=== PATIENT | female | born 1945 | race Caucasian/White ===

== ENCOUNTER 2018-04-24 11:35 | Emergency (ER) | payer MEDICARE, BC ==
[2018-04-24] MEDS ORDERED: Albuterol/Ipratropium 3.0-0.5 MG/3 ML Neb Soln ONE ×2 (11:57→12:39)
[2018-04-24] MEDS ORDERED: Albuterol/Ipratropium 3.0-0.5 MG/3 ML Neb Soln NEB ONE ×2 (12:49)
[2018-04-24] MEDS ORDERED: Potassium Chloride 20 MEQ Tab.ER PO ONE (14:01)
[2018-04-24] MEDS ORDERED: Potassium Chloride 10% 20 MEQ/15 ML Soln 15 ML UD Cup PO ONE (14:21)
[2018-04-24 22:12] VITALS: BP 132/50
--- NOTE | 2018-04-24 22:26 | EDM.PDOC ---
ED HPI GENERAL MEDICAL PROBLEM - General Chief Complaint: Respiratory Problem Stated Complaint: SOB FAINTING Time Seen by Provider: 04/24/18 11:50 Source of Information: Reports: Patient History Limitations: Reports: No Limitations - History of Present Illness INITIAL COMMENTS - FREE TEXT/NARRATIVE: This pleasant markedly obese 200 pound woman. Markedly short of breath and was immediately started on DuoNeb on arrival to the ED. On 04/21/18 noted which is known for a long time that she had even more increased mucous membrane production from her lungs and is a passages. And this new chorea coupled with and cough and fever markedly increased her shortness of breath. On awakening 04/22 she had sudden onset of sweating oriented when she awoke short of breath as stated with dyspnea on exertion. She does not have O2 at home. She is up-to- date on her flu immunization. She knows that Januvia increases mucus discharge in her respiratory passages. He attributes this to her increased shortness of breath and possible pneumonia. 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 She's had many Botox shots in her upper eyelids after the surgeries been completed and no longer for eyelids droop in front of her eyes. ld - Related Data Allergies Allergy/AdvReac Type Severity Reaction Status Date / Time iodine Allergy Airway Verified 12/19/13 17:52 Tightness lisinopril Allergy Hives Verified 12/19/13 17:52 metformin Allergy Stomach Verified 12/19/13 17:52 Upset shellfish derived Allergy Abdominal Verified 10/17/15 10:45 Pain Home Meds: Home Meds Aspirin [Adult Low Dose Aspirin EC] 81 mg PO DAILY 12/19/13 [History] Carboxymethylcellulose Sodium [Refresh Plus 0.5% Ophth Soln] 1 drop EYEBOTH ASDIRECTED PRN 12/19/13 [History] Hydrochlorothiazide 25 mg PO DAILY 12/19/13 [History] Metoprolol Succinate [Toprol XL] 100 mg PO BID 12/19/13 [History] Ranitidine [Zantac] 150 mg PO DAILY 12/19/13 [History] Simvastatin 40 mg PO BEDTIME 12/19/13 [History] SitaGLIPtin [Januvia] 50 mg PO DAILY 12/19/13 [History] Albuterol [Ventolin HFA] 2 puff IH Q4H PRN 10/17/15 [History] Glimepiride [Amaryl] 2 mg PO WITHBREAKFAST 10/17/15 [History] Biotin 1,000 mcg PO BEDTIME 04/24/18 [History] Cholecalciferol (Vitamin D3) [Vitamin D3] 1,000 units PO BEDTIME 04/24/18 [ History] Naproxen 500 mg PO BID PRN 04/24/18 [History] Potassium Chloride [Klor-Con] 20 meq PO BID #40 packet 04/24/18 [Rx] Past Medical History HEENT History: Reports: Cataract, Impaired Vision Cardiovascular History: Reports: High Cholesterol, Hypertension Respiratory History: Reports: COPD, Pneumonia, Recurrent Gastrointestinal History: Reports: Cholelithiasis Genitourinary History: Reports: None DUTY ENGINEER History: Reports: Musculoskeletal History: Reports: Osteoporosis, Other (See Below) Other Musculoskeletal History: torn achilles tendon Neurological History: Reports: Migraines Psychiatric History: Reports: Depression Endocrine/Metabolic History: Reports: Diabetes, Type II, Obesity/BMI 30+ Hematologic History: Reports: None Immunologic History: Reports: None Oncologic (Cancer) History: Reports: None Dermatologic History: Reports: None Other Dermatologic History: BASAL CELL CA OF FACE - Infectious Disease History Infectious Disease History: Reports: Chicken Pox, Measles, Pertussis (Whooping Cough) - Past Surgical History HEENT Surgical History: Reports: Other (See Below) ED ROS GENERAL - Review of Systems Review Of Systems: See Below Constitutional: Reports: Other (Weight this limits her to move around he has moderate pedal edema) HEENT: Reports: No Symptoms Respiratory: Reports: Shortness of Breath, Cough (Exertion), Sputum, Other Cardiovascular: Reports: Other (No chest pain no tachycardia or arrhythmia) Endocrine: Reports: No Symptoms GI/Abdominal: Reports: No Symptoms : Reports: No Symptoms Musculoskeletal: Reports: No Symptoms Skin: Reports: No Symptoms Neurological: Reports: No Symptoms Psychiatric: Reports: No Symptoms Hematologic/Lymphatic: Reports: No Symptoms Immunologic: Reports: No Symptoms ED EXAM, GENERAL - Physical Exam Exam: See Below Free Text/Narrative:: Patient on arrival was very dyspneic and on O2. It had gotten much better and wrote with a DuoNeb. He is a very pleasant woman who now feels much better. Denies chest pain. Exam Limited By: No Limitations General Appearance: Alert, WD/WN, Moderate Distress, Other (Final distress on arrival has resolved to minimal distress after the DuoNeb) Eye Exam: Bilateral Eye: Other (Peripheral surgical reduction of the lid over having a redundant problem soft tissue and dermis.) Ears: Normal External Exam, Normal Canal, Hearing Grossly Normal, Normal TMs Ear Exam: Bilateral Ear: Auricle Normal, Canal Normal, TM normal Nose: Normal Inspection, Normal Mucosa, No Blood Throat/Mouth: Normal Inspection, Normal Lips, Normal Gums, Normal Oropharynx, Normal Voice Head: Atraumatic, Normocephalic Neck: Normal Inspection, Supple, Non-Tender, Other (No tracheal tug) Respiratory/Chest: Other (Mild respiratory distress on arrival which quickly abated after the DuoNeb) Cardiovascular: Normal Peripheral Pulses, Regular Rate, Rhythm, No Edema, No Gallop, No Murmur, No Rub Peripheral Pulses: 1+: Radial (L), Radial (R) GI/Abdominal: Normal Bowel Sounds, Soft, Non-Tender, No Organomegaly, No Distention, No Abnormal Bruit, No Mass (Female) Exam: Deferred Rectal (Female) Exam: Deferred Back Exam: Normal Inspection Extremities: Normal Inspection Neurological: Alert, Oriented, CN II-XII Intact, Normal Cognition, Normal Gait, No Motor/Sensory Deficits, Other (Absent reflexes) Psychiatric: Normal Affect, Normal Mood Skin Exam: Warm, Dry Lymphatic: Adenopathy Course - Vital Signs Last Recorded V/S: Last Vital Signs Temp 35.9 C 04/24/18 11:35 Pulse 60 04/24/18 14:30 Resp 20 04/24/18 14:30 BP 132/50 L 04/24/18 14:30 Pulse Ox 95 04/24/18 14:30 - Orders/Labs/Meds Orders: Active Orders 24 hr Category Date Time Status Oxygen Therapy Adult [Oxygen Therapy, ED] [RC] Care 04/24/18 12:57 Active ASDIRECTED RT Aerosol Therapy [RC] ASDIRECTED Care 04/24/18 12:49 Active Chest 1V Frontal [CR] Stat Exams 04/24/18 11:58 Taken CULTURE BLOOD [BC] Urgent Lab 04/24/18 12:40 Received CULTURE BLOOD [BC] Urgent Lab 04/24/18 12:50 Received CULTURE SPUTUM + SMEAR [RM] Stat Lab 04/24/18 14:26 Received Blood Culture x2 Reflex Set [OM.PC] Urgent Oth 04/24/18 12:24 Ordered EKG 12 Lead [EK] Routine Ther 04/24/18 12:21 Ordered Labs: Laboratory Tests 04/24/18 04/24/18 04/24/18 Range/Units 12:40 12:40 12:40 WBC 6.1 (4.5-12.0) X10-3/uL RBC 4.86 (3.23-5.20) x10(6)uL Hgb 14.5 (11.5-15.5) g/dL Hct 42.1 (30.0-51.3) % MCV 86.7 (80-96) fL MCH 29.9 (27.7-33.6) pg MCHC 34.5 (32.2-35.4) g/dL RDW 13.7 (11.5-15.5) % Plt Count 249 (125-369) X10(3)uL MPV 8.1 (7.4-10.4) fL Neut % (Auto) 76.3 (46-82) % Lymph % (Auto) 14.8 (13-37) % Gage % (Auto) 8.1 (4-12) % Eos % (Auto) 0 L (1.0-5.0) % Baso % (Auto) 1 (0-2) % Neut # (Auto) 4.7 (1.6-8.3) # Lymph # (Auto) 0.9 (0.6-5.0) # Gage # (Auto) 0.5 (0.0-1.3) # Eos # (Auto) 0.0 (0.0-0.8) # Baso # (Auto) 0.0 (0.0-0.2) # D-Dimer, Quantitative 0.56 (0.0-0.59) mg/LFEU Sodium 139 (135-145) mmol/L Potassium 2.8 L* (3.5-5.3) mmol/L Chloride 99 L (100-110) mmol/L Carbon Dioxide 33 H (21-32) mmol/L BUN 13 (7-18) mg/dL Creatinine 1.0 (0.55-1.02) mg/dL Est Cr Clr Drug Dosing TNP Estimated GFR (MDRD) 54 L (>60) BUN/Creatinine Ratio 13.0 (9-20) Glucose 118 H (80-116) mg/dL Lactic Acid (0.4-2.2) mmol/L Calcium 9.1 (8.6-10.2) mg/dL Total Bilirubin 0.7 (0.1-1.3) mg/dL AST 14 (5-25) IU/L ALT 19 (12-36) U/L Alkaline Phosphatase 70 (56-112) IU/L Troponin I (<0.017-0.056) ng/mL NT-Pro-B Natriuret Pep (<=125) pg/mL Total Protein 7.1 (6.0-8.0) g/dL Albumin 3.2 (3.2-4.6) g/dL Globulin 3.9 g/dL Albumin/Globulin Ratio 0.8 04/24/18 04/24/18 04/24/18 Range/Units 12:40 12:40 12:40 WBC (4.5-12.0) X10-3/uL RBC (3.23-5.20) x10(6)uL Hgb (11.5-15.5) g/dL Hct (30.0-51.3) % MCV (80-96) fL MCH (27.7-33.6) pg MCHC (32.2-35.4) g/dL RDW (11.5-15.5) % Plt Count (125-369) X10(3)uL MPV (7.4-10.4) fL Neut % (Auto) (46-82) % Lymph % (Auto) (13-37) % Gage % (Auto) (4-12) % Eos % (Auto) (1.0-5.0) % Baso % (Auto) (0-2) % Neut # (Auto) (1.6-8.3) # Lymph # (Auto) (0.6-5.0) # Gage # (Auto) (0.0-1.3) # Eos # (Auto) (0.0-0.8) # Baso # (Auto) (0.0-0.2) # D-Dimer, Quantitative (0.0-0.59) mg/LFEU Sodium (135-145) mmol/L Potassium (3.5-5.3) mmol/L Chloride (100-110) mmol/L Carbon Dioxide (21-32) mmol/L BUN (7-18) mg/dL Creatinine (0.55-1.02) mg/dL Est Cr Clr Drug Dosing Estimated GFR (MDRD) (>60) BUN/Creatinine Ratio (9-20) Glucose (80-116) mg/dL Lactic Acid 0.8 (0.4-2.2) mmol/L Calcium (8.6-10.2) mg/dL Total Bilirubin (0.1-1.3) mg/dL AST (5-25) IU/L ALT (12-36) U/L Alkaline Phosphatase (56-112) IU/L Troponin I < 0.017 L (<0.017-0.056) ng/mL NT-Pro-B Natriuret Pep 483 H (<=125) pg/mL Total Protein (6.0-8.0) g/dL Albumin (3.2-4.6) g/dL Globulin g/dL Albumin/Globulin Ratio Meds: Medications Discontinued Medications Generic Name Dose Route Start Last Admin Trade Name Freq PRN Reason Stop Dose Admin Albuterol/Ipratropium Confirm 04/24/18 11:57 04/24/18 12:00 Duoneb 3.0-0.5 Mg/3 Ml Administered 04/24/18 11:58 3 ml Dose Administration 3 ml .ROUTE .STK-MED ONE Albuterol/Ipratropium Confirm 04/24/18 12:39 04/24/18 12:43 Duoneb 3.0-0.5 Mg/3 Ml Administered 04/24/18 12:40 3 ml Dose Administration 3 ml .ROUTE .STK-MED ONE Albuterol/Ipratropium 3 ml 04/24/18 12:49 04/24/18 12:50 Duoneb 3.0-0.5 Mg/3 Ml NEB 04/24/18 12:50 Not Given ONETIME ONE Albuterol/Ipratropium 3 ml 04/24/18 12:49 04/24/18 12:50 Duoneb 3.0-0.5 Mg/3 Ml NEB 04/24/18 12:50 Not Given ONETIME ONE Potassium Chloride 40 meq 04/24/18 14:01 04/24/18 14:17 Klor-Con M20 PO 04/24/18 14:02 40 meq ONETIME ONE Administration Potassium Chloride 40 meq 04/24/18 14:21 04/24/18 22:06 Potassium Chloride Solution PO 04/24/18 14:22 Not Given ONETIME ONE Departure - Departure Time of Disposition: 13:45 (Patient's markedly obese, is mild COPD and had a dramatic improvement of her breathing after duo nebs which a good anticholinergic response to DuoNeb decreasing the broncospasm that she was acutely experiencing. ) Disposition: Home, Self-Care 01 Clinical Impression: Bronchospasm, acute, Obesity (BMI 30-39.9) COPD (chronic obstructive pulmonary disease) Qualifiers: COPD type: unspecified COPD Qualified Code(s): J44.9 - Chronic obstructive pulmonary disease, unspecified Diabetes Qualifiers: Diabetes mellitus type: type 2 Diabetes mellitus terminal operations supervisor insulin use: with terminal operations supervisor use Diabetes mellitus complication status: with kidney complications Diabetes mellitus complication detail: with microalbuminuria Qualified Code(s): E11.29 - Type 2 diabetes mellitus with other diabetic kidney complication; R80.9 - Proteinuria, unspecified; Z79.4 - custodial (current) use of insulin - Discharge Information Prescriptions: Potassium Chloride [Klor-Con] 20 meq PO BID #40 packet Instructions: Shortness of Breath, Adult, [id number], Hypokalemia Referrals: Mt Sexton MD [Primary Care Provider] - Forms: ED Department Discharge Additional Instructions: Discomfort made for you to have dual nebs as needed. They helped her lungs dramatically today. You Have a significantly low potassium of 2.7 it should be about 3.5. All of Your body depends on potassium especially your heart and lungs. I prescribed potassium: take 20 mg twice a day for the next 3 weeks. Follow up with your M.D. in a week and have a repeat BMP , basic metabolic panel completed to check potassium.. With adequate potassium he will feel much better. The nurse will give you a list of foods that have high potassium. Red meat citrus fruits etc. have high potassium . - My Orders Last 24 Hours: My Active Orders 04/24/18 11:58 Chest 1V Frontal [CR] Stat 04/24/18 12:21 EKG 12 Lead [EK] Routine 04/24/18 12:24 Blood Culture x2 Reflex Set [OM.PC] Urgent 04/24/18 12:40 CULTURE BLOOD [BC] Urgent 04/24/18 12:49 RT Aerosol Therapy [RC] ASDIRECTED 04/24/18 12:50 CULTURE BLOOD [BC] Urgent 04/24/18 12:57 Oxygen Therapy Adult [Oxygen Therapy, ED] [] ASDIRECTED 04/24/18 14:26 CULTURE SPUTUM + SMEAR [RM] Stat - Assessment/Plan Last 24 Hours: My Active Orders 04/24/18 11:58 Chest 1V Frontal [CR] Stat 04/24/18 12:21 EKG 12 Lead [EK] Routine 04/24/18 12:24 Blood Culture x2 Reflex Set [OM.PC] Urgent 04/24/18 12:40 CULTURE BLOOD [BC] Urgent 04/24/18 12:49 RT Aerosol Therapy [RC] ASDIRECTED 04/24/18 12:50 CULTURE BLOOD [BC] Urgent 04/24/18 12:57 Oxygen Therapy Adult [Oxygen Therapy, ED] [RC] ASDIRECTED 04/24/18 14:26 CULTURE SPUTUM + SMEAR [RM] Stat
--- NOTE | 2018-04-25 10:29 | CR ---
INDICATION: Chest pain. CHEST: A single portable AP upright view of the chest was obtained 04/24/2018 and compared with 08/10/2009. The heart appears enlarged. The aorta is tortuous to a minimal degree and is calcified in the arch area. Hyperaeration and slightly flattened diaphragm leaf on the right raise question of COPD - correlate clinically. Overlying EKG leads are noted. An active infiltrate or effusion was not identified. IMPRESSION: 1. Probable ASHD, mild cardiomegaly suggested. 2. Possible COPD - correlate clinically. MTDD
== END 2018-04-24 14:30 | disposition home or self-care (01) ==
LOC: FB.ED 11:35
DX: J98.01 Acute bronchospasm (principal); J44.9 Chronic obstructive pulmonary disease, unspecified; E11.29 Type 2 diabetes mellitus with other diabetic kidney complication; E66.9 Obesity, unspecified; Z68.30 Body mass index [BMI] 30.0-30.9, adult; R80.9 Proteinuria, unspecified; I10 Essential (primary) hypertension; Z79.4 Long term (current) use of insulin; Z79.82 Long term (current) use of aspirin; Z91.013 Allergy to seafood; Z91.09 Other allergy status, other than to drugs and biological substances; Z88.8 Allergy status to other drugs, medicaments and biological substances
CPT/HCPCS: 36415; 71045; 80053; 83605; 83880; 84484; 85025; 85379; 87040; 87070; 87205; 93005; 94640; 99285; A9270; J7620-GY

== ENCOUNTER 2018-04-25 11:11 | Emergency (ER) | payer MEDICARE, BC ==
--- NOTE | 2018-04-25 11:41 | EDM.PDOC ---
ED HPI GENERAL MEDICAL PROBLEM - General Stated Complaint: SOB Time Seen by Provider: 04/25/18 11:30 Source of Information: Reports: Patient History Limitations: Reports: No Limitations - History of Present Illness INITIAL COMMENTS - FREE TEXT/NARRATIVE: Pleasant overweight woman with chronic structural lung disease was seen yesterday in the emergency room and had shortness of breath cough and was treated for hyperkalemia with a prescription of potassium supplements take twice a day until stable. She also was not started on antibiotics or steroids since she did so well with the nebulizer. I had made arrangements with [facility] to have nebulizer delivered to her house. The nurse yesterday noted that the [facility] would deliver the medicines with her machine. I purposely checked off the medicine request on the [facility] nebulizer questionaire. She did not receive medicine last night when they deliver the machine. she was coughing much of the night because she did not have benefit of the duo nebs. Today she is mildly short of breath her respiratory rate is 18, heart rate of 60, and denies chest pain. She has mild accessory muscle use, fever chills back pain or arm pain neck pain or abdominal pain or edema of her lower extremities. She is accompanied by her . - Related Data Allergies Allergy/AdvReac Type Severity Reaction Status Date / Time iodine Allergy Airway Verified 12/19/13 17:52 Tightness lisinopril Allergy Hives Verified 12/19/13 17:52 metformin Allergy Stomach Verified 12/19/13 17:52 Upset shellfish derived Allergy Abdominal Verified 10/17/15 10:45 Pain Home Meds: Home Meds Aspirin [Adult Low Dose Aspirin EC] 81 mg PO DAILY 12/19/13 [History] Carboxymethylcellulose Sodium [Refresh Plus 0.5% Ophth Soln] 1 drop EYEBOTH ASDIRECTED PRN 12/19/13 [History] Hydrochlorothiazide 25 mg PO DAILY 12/19/13 [History] Metoprolol Succinate [Toprol XL] 100 mg PO BID 12/19/13 [History] Ranitidine [Zantac] 150 mg PO DAILY 12/19/13 [History] Simvastatin 40 mg PO BEDTIME 12/19/13 [History] SitaGLIPtin [Januvia] 50 mg PO DAILY 12/19/13 [History] Albuterol [Ventolin HFA] 2 puff IH Q4H PRN 10/17/15 [History] Glimepiride [Amaryl] 2 mg PO WITHBREAKFAST 10/17/15 [History] Biotin 1,000 mcg PO BEDTIME 04/24/18 [History] Cholecalciferol (Vitamin D3) [Vitamin D3] 1,000 units PO BEDTIME 04/24/18 [ History] Naproxen 500 mg PO BID PRN 04/24/18 [History] Potassium Chloride [Klor-Con] 20 meq PO BID #40 packet 04/24/18 [Rx] Past Medical History HEENT History: Reports: Cataract, Impaired Vision Cardiovascular History: Reports: High Cholesterol, Hypertension Respiratory History: Reports: COPD, Pneumonia, Recurrent Gastrointestinal History: Reports: Cholelithiasis Genitourinary History: Reports: None ENVIRONMENTAL SERVICES MANAGER History: Reports: Other ENVIRONMENTAL SERVICES MANAGER History: [id number] Musculoskeletal History: Reports: Osteoporosis, Other (See Below) Other Musculoskeletal History: torn achilles tendon Neurological History: Reports: Migraines Psychiatric History: Reports: Depression Endocrine/Metabolic History: Reports: Diabetes, Type II, Obesity/BMI 30+ Hematologic History: Reports: None Immunologic History: Reports: None Oncologic (Cancer) History: Reports: None Dermatologic History: Reports: None Other Dermatologic History: BASAL CELL CA OF FACE - Infectious Disease History Infectious Disease History: Reports: Chicken Pox, Measles, Pertussis (Whooping Cough) - Past Surgical History HEENT Surgical History: Reports: Other (See Below) Social & Family History - Family History Family Medical History: Noncontributory - Caffeine Use Caffeine Use: Reports: Coffee ED ROS GENERAL - Review of Systems Review Of Systems: See Below Constitutional: Reports: No Symptoms HEENT: Reports: No Symptoms Respiratory: Reports: Shortness of Breath Cardiovascular: Reports: No Symptoms Endocrine: Reports: No Symptoms GI/Abdominal: Reports: No Symptoms : Reports: No Symptoms Musculoskeletal: Reports: No Symptoms Skin: Reports: No Symptoms Neurological: Reports: No Symptoms Psychiatric: Reports: No Symptoms Hematologic/Lymphatic: Reports: No Symptoms ED EXAM, GENERAL - Physical Exam Exam: See Below Free Text/Narrative:: Pleasant overweight woman who has a warm greeting and is accompanied by her . She is well muscled well-nourished and has mild accessory muscle use with a respiratory rate of 18 heart rate of 60 Exam Limited By: No Limitations General Appearance: Alert, WD/WN, Mild Distress Eye Exam: Bilateral Eye: Normal Inspection Ears: Normal External Exam Ear Exam: Bilateral Ear: Auricle Normal Nose: Normal Inspection Throat/Mouth: Normal Inspection Head: Atraumatic, Normocephalic Neck: Normal Inspection, Supple, Other (Mild accessory muscle use with respiration) Respiratory/Chest: Chest Non-Tender, Other (Coarse breath sounds without rales mild sternocleidomastoid accessory muscle use) Cardiovascular: Normal Peripheral Pulses, Regular Rate, Rhythm, No Edema, No Gallop, No JVD, No Murmur, No Rub Peripheral Pulses: 1+: Brachial (L), Brachial (R) GI/Abdominal: Normal Bowel Sounds, Soft, Non-Tender, No Organomegaly, No Distention, No Mass (Female) Exam: Deferred Rectal (Female) Exam: Deferred Back Exam: Normal Inspection Extremities: Normal Inspection Neurological: Alert, Oriented, CN II-XII Intact, Normal Cognition, No Motor/ Sensory Deficits Skin Exam: Warm, Dry, Intact Lymphatic: No Adenopathy Departure - Departure Time of Disposition: 11:40 (Patient is a bounce back because the [facility] did not dispense the DuoNeb medication as was directed on the order sheet today place with the last night. She has mild tachypnea and accessory muscle use is not extremist. Today regarding to advance her therapy to include prednisone 40 mg daily for 5 days and azithromycin Z-Je. I did not use necessary since she did so well with the DuoNeb. I will write out a DuoNeb prescription so she can fill at the pharmacy and buy nursing vineyard supervisor is calling the [facility] to determine where the glitch was in not delivering the ordered medication last night) Disposition: Home, Self-Care 01 Condition: Good Clinical Impression: COPD exacerbation - Discharge Information *PRESCRIPTION DRUG MONITORING PROGRAM REVIEWED*: Not Applicable *COPY OF PRESCRIPTION DRUG MONITORING REPORT IN PATIENT [place]: Not Applicable Referrals: Mt Sexton MD [Primary Care Provider] -
[2018-04-25] MEDS ORDERED: Albuterol/Ipratropium 3.0-0.5 MG/3 ML Neb Soln NEB ONE (11:44)
[2018-04-25 17:20] VITALS: BP 138/58
== END 2018-04-25 12:50 | disposition home or self-care (01) ==
LOC: FB.ED 11:11
DX: J44.1 Chronic obstructive pulmonary disease with (acute) exacerbation (principal); I10 Essential (primary) hypertension; E78.00 Pure hypercholesterolemia, unspecified; E11.9 Type 2 diabetes mellitus without complications; Z79.82 Long term (current) use of aspirin; Z79.899 Other long term (current) drug therapy; Z91.09 Other allergy status, other than to drugs and biological substances; Z91.013 Allergy to seafood; Z88.8 Allergy status to other drugs, medicaments and biological substances
CPT/HCPCS: 94640; 99283; 99284; J7620-GY

== ENCOUNTER 2019-01-14 15:16 | Emergency (ER) | payer MEDICARE, BC ==
--- NOTE | 2019-01-14 16:37 | EDM.PDOC ---
ED HPI GENERAL MEDICAL PROBLEM - General Chief Complaint: Lower Extremity Injury/Pain Stated Complaint: L FOOT PAIN Time Seen by Provider: 01/14/19 16:32 Source of Information: Reports: Patient History Limitations: Reports: No Limitations - History of Present Illness INITIAL COMMENTS - FREE TEXT/NARRATIVE: "Stepped crooked" last night crossing a threshold while wearing slippers. Complains of left foot pain. Onset Date: 01/14/19 Onset Time: 02:30 Location: Reports: Lower Extremity, Left Quality: Reports: Ache Severity: Moderate L lateral great toe Pain Score (Numeric/FACES): 8 - Related Data Allergies Allergy/AdvReac Type Severity Reaction Status Date / Time iodine Allergy Airway Verified 01/14/19 15:44 Tightness lisinopril Allergy Hives Verified 01/14/19 15:44 metformin Allergy Stomach Verified 01/14/19 15:44 Upset shellfish derived Allergy Abdominal Verified 01/14/19 15:44 Pain Home Meds: Home Meds Aspirin [Adult Low Dose Aspirin EC] 81 mg PO DAILY 12/19/13 [History] Carboxymethylcellulose Sodium [Refresh Plus 0.5% Ophth Soln] 1 drop EYEBOTH ASDIRECTED PRN 12/19/13 [History] Hydrochlorothiazide 25 mg PO DAILY 12/19/13 [History] Metoprolol Succinate [Toprol XL] 100 mg PO BID 12/19/13 [History] Ranitidine [Zantac] 150 mg PO DAILY 12/19/13 [History] Simvastatin 40 mg PO BEDTIME 12/19/13 [History] SitaGLIPtin [Januvia] 50 mg PO DAILY 12/19/13 [History] Albuterol [Ventolin HFA] 2 puff IH Q4H PRN 10/17/15 [History] Glimepiride [Amaryl] 2 mg PO WITHBREAKFAST 10/17/15 [History] Biotin 1,000 mcg PO BEDTIME 04/24/18 [History] Cholecalciferol (Vitamin D3) [Vitamin D3] 1,000 units PO BEDTIME 04/24/18 [ History] Naproxen 500 mg PO BID PRN 04/24/18 [History] Potassium Chloride [Klor-Con] 20 meq PO BID #40 packet 04/24/18 [Rx] Albuterol [Proventil HFA] 200 puff INH Q2H PRN #1 inhaler 04/25/18 [Rx] Albuterol/Ipratropium [Combivent Respimat] 4 gm IH ASDIRECTED PRN #1 aer.w.adap 04/25/18 [Rx] Umeclidinium Brm/Vilanterol Tr [Anoro Ellipta 62.5-25 MCG] 1 puff IH DAILY #1 inhaler 04/25/18 [Rx] predniSONE [Prednisone] 40 mg PO DAILY #8 tablet 04/25/18 [Rx] Past Medical History HEENT History: Reports: Cataract, Impaired Vision Cardiovascular History: Reports: High Cholesterol, Hypertension, SOB on Exertion Respiratory History: Reports: COPD, Pneumonia, Recurrent Gastrointestinal History: Reports: Cholelithiasis, GERD Genitourinary History: Reports: None INSPECTOR SOLDERING History: Reports: Other INSPECTOR SOLDERING History: [id number] Musculoskeletal History: Reports: Fracture, Gout, Osteoporosis, Other (See Below ) Other Musculoskeletal History: torn achilles tendon, hx fx L ankle Neurological History: Reports: Migraines Psychiatric History: Reports: Anxiety, Depression, Suicide Attempt Endocrine/Metabolic History: Reports: Diabetes, Type II, Obesity/BMI 30+ Hematologic History: Reports: None Immunologic History: Reports: None Oncologic (Cancer) History: Reports: Basal Cell Carcinoma Dermatologic History: Reports: Other (See Below) Other Dermatologic History: BASAL CELL CA OF FACE - Infectious Disease History Infectious Disease History: Reports: Chicken Pox, Measles, Pertussis (Whooping Cough) - Past Surgical History HEENT Surgical History: Reports: Cataract Surgery, Visual, Other (See Below) Other HEENT Surgeries/Procedures: bilat cataract surg, double myectomy GI Surgical History: Reports: Cholecystectomy, Colonoscopy Social & Family History - Family History Family Medical History: Noncontributory - Tobacco Use Smoking Status *Q: Current Every Day Smoker Tobacco Use Within Last Twelve Months: Cigarettes Years of Tobacco use: 62 Packs/Tins Daily: 0.5 - Caffeine Use Caffeine Use: Reports: Soda - Recreational Drug Use Recreational Drug Use: No Review of Systems - Review of Systems Review Of Systems: ROS reveals no pertinent complaints other than HPI. ED EXAM, GENERAL - Physical Exam Exam: See Below Exam Limited By: No Limitations General Appearance: Alert, No Apparent Distress Ears: Normal External Exam Nose: Normal Inspection Throat/Mouth: No Airway Compromise Head: Atraumatic, Normocephalic Neck: Full Range of Motion Respiratory/Chest: No Respiratory Distress Cardiovascular: Other (Toes cyanotic bilaterally (chronic per patient)) Extremities: Other (tenderness and swelling overlying the left 1st MCP joint) Neurological: Alert, Normal Cognition, No Motor/Sensory Deficits Psychiatric: Normal Affect, Normal Mood Skin Exam: Warm, Dry, Intact Course - Vital Signs Last Recorded V/S: Last Vital Signs Temp 36.6 C 01/14/19 15:30 Pulse 68 01/14/19 15:30 Resp 18 01/14/19 15:30 BP 123/54 L 01/14/19 15:30 Pulse Ox 97 01/14/19 15:30 - Orders/Labs/Meds Orders: Active Orders 24 hr Category Date Time Status Foot Comp Min 3V Lt [CR] Stat Exams 01/14/19 15:56 Taken - Radiology Interpretation Free Text/Narrative:: Left foot XR: No acute osseous abnormalities (ED provider interpretation). Departure - Departure Time of Disposition: 16:37 Disposition: Home, Self-Care 01 Condition: Good Clinical Impression: Strain of foot, left Qualifiers: Encounter type: initial encounter Qualified Code(s): S96.912A - Strain of unspecified muscle and tendon at ankle and foot level, left foot, initial encounter - Discharge Information *PRESCRIPTION DRUG MONITORING PROGRAM REVIEWED*: No *COPY OF PRESCRIPTION DRUG MONITORING REPORT IN PATIENT [place]: Not Applicable Instructions: Foot Sprain Referrals: Mt Sexton MD [Primary Care Provider] - Additional Instructions: Take OTC Ibuprofen as needed. Elevate the leg. Wear hard sole shoes. Weight bear as tolerated. Follow up with your doctor in 1 week if symptoms don't improve, sooner if symptoms worsen. - My Orders Last 24 Hours: My Active Orders 01/14/19 15:56 Foot Comp Min 3V Lt [CR] Stat - Assessment/Plan Last 24 Hours: My Active Orders 01/14/19 15:56 Foot Comp Min 3V Lt [CR] Stat
[2019-01-14 20:33] VITALS: BP 108/51
--- NOTE | 2019-01-15 09:09 | CR ---
INDICATION: Stubbed great toe early a.m. LEFT FOOT: Two views of the left foot were obtained 01/14/19--no comparisons. Small plantar calcaneal spur is noted. Mild degenerative changes are noted at the first metatarsophalangeal joint with minimal degenerative change at the interval joint of the great toe and the DIPJs of the second, third and fourth toes. An acute fracture, dislocation, or other acute bone or joint abnormality was not suggested. MTDD
== END 2019-01-14 16:45 | disposition home or self-care (01) ==
LOC: FB.ED 15:16
DX: S96.912A Strain of unspecified muscle and tendon at ankle and foot level, left foot, initial encounter (principal); F17.210 Nicotine dependence, cigarettes, uncomplicated; I10 Essential (primary) hypertension; E78.00 Pure hypercholesterolemia, unspecified; J44.9 Chronic obstructive pulmonary disease, unspecified; K21.9 Gastro-esophageal reflux disease without esophagitis; F41.9 Anxiety disorder, unspecified; F32.9 Major depressive disorder, single episode, unspecified; E11.9 Type 2 diabetes mellitus without complications; Z79.82 Long term (current) use of aspirin; Z79.84 Long term (current) use of oral hypoglycemic drugs; Z79.899 Other long term (current) drug therapy; Z91.09 Other allergy status, other than to drugs and biological substances; Z88.8 Allergy status to other drugs, medicaments and biological substances; Z91.013 Allergy to seafood; X50.9XXA Other and unspecified overexertion or strenuous movements or postures, initial encounter
CPT/HCPCS: 73630-LT; 99282; 99283-25

== ENCOUNTER 2025-05-22 17:10 | Emergency (ER) | payer MEDICARE, MEDICAID ==
[2025-05-22 17:48] LABS: BASOPHILS ABSOLUTE AUTO 0.0 x10-3/uL (0.0-0.1); EOSINOPHILS ABSOLUTE AUTO 0.0 x10-3/uL (0.0-0.8); EOSINOPHILS PERCENT AUTO 1.1 % (0.6-8.1); LYMPHOCYTES ABSOLUTE AUTO 0.8 x10-3/uL (1.0-4.4); MEAN PLATELET VOLUME 7.1 fL (7.1-12.4); MONOCYTES ABSOLUTE AUTO 0.4 x10-3/uL (0.3-1.0); MONOCYTES PERCENT AUTO 10.5 % (4.4-15.7); NEUTROPHILS ABSOLUTE AUTO 2.6 x10-3/uL (1.5-6.3)
[2025-05-22 17:49] LABS: BASOPHILS PERCENT AUTO 0.9 % (0.2-1.5); BLOOD UREA NITROGEN,BUN 13 mg/dL (7-18); CARBON DIOXIDE,CO2 30 mmol/L (21-32); CHLORIDE,CL 102 mmol/L (100-110); CREATININE 1.0 mg/dL (0.55-1.02); ESTIMATED GFR 57 mL/min (>60); GLUCOSE RANDOM 191 mg/dL (80-116); LYMPHOCYTES PERCENT AUTO 19.8 % (18.4-52.1); NEUTROPHILS PERCENT AUTO 67.7 % (30.8-76.2); PLATELET COUNT,PLT 259 x10(3)uL (151-488); POTASSIUM,K 4.6 mmol/L (3.5-5.3); RED BLOOD CELL COUNT 5.17 x10(6)uL (3.60-5.20); RED CELL DISTRIBUTION WIDTH 15.2 % (12.3-16.5); SODIUM,NA 139 mmol/L (135-145); WHITE BLOOD CELL COUNT,WBC 3.8 x10-3/uL (3.0-10.3)
[2025-05-22] MEDS: Ondansetron 4 MG/2 ML SDV IVPUSH ONE (17:51)
[2025-05-22] MEDS: Sodium Chloride 0.9% 10 ML Syringe FLUSH PRN (17:52)
[2025-05-22 17:55] LABS: A/G RATIO 0.9; ALANINE AMINOTRANSFERASE,ALT 18 U/L (12-36); ASPARTATE AMNIOTRANSFERASE,AST 22 IU/L (5-25); BILIRUBIN TOTAL 0.5 mg/dL (0.1-1.3); PROTEIN TOTAL,TP 7.2 g/dL (6.0-8.0)
[2025-05-22 19:11] LABS: GLUCOSE,URINE NORMAL (NORMAL); OCCULT BLOOD,URINE NEGATIVE (NEGATIVE)
[2025-05-22 19:12] LABS: APPEARANCE,URINE CLEAR (CLEAR)
[2025-05-22 19:45] VITALS: BP 150/67; PULSE 66
== END 2025-05-22 19:58 ==
LOC: FB.ED 17:10
DX: R42 Dizziness and giddiness (principal); E78.00 Pure hypercholesterolemia, unspecified; I10 Essential (primary) hypertension; J44.9 Chronic obstructive pulmonary disease, unspecified; K21.9 Gastro-esophageal reflux disease without esophagitis; E66.9 Obesity, unspecified; Z91.048 Other nonmedicinal substance allergy status; Z91.041 Radiographic dye allergy status; Z88.8 Allergy status to other drugs, medicaments and biological substances; Z91.013 Allergy to seafood; Z79.01 Long term (current) use of anticoagulants; Z79.899 Other long term (current) drug therapy; Z79.84 Long term (current) use of oral hypoglycemic drugs; Z90.49 Acquired absence of other specified parts of digestive tract; Z68.29 Body mass index [BMI] 29.0-29.9, adult
CPT/HCPCS: 36415; 80053; 81003; 84484; 85025; 93005; 96374; 96375; 99285; A9270; J2405; J1920